=== PATIENT | male | born 1960 | race Caucasian/White ===

== ENCOUNTER 2017-01-30 20:51 | Inpatient (IN) ==
[2017-01-31] MEDS ORDERED: Ondansetron 4 MG/2 ML VIAL IVP PRN (01:02)
[2017-01-31] MEDS ORDERED: Acetaminophen 325 MG TABLET PO PRN (01:02)
[2017-01-31] MEDS ORDERED: Naloxone 0.4 MG/ML INJ IVP PRN (01:02)
--- NOTE | 2017-01-31 01:13 | Internal Med History&Physical ---
Date of Encounter: 01/30/17 Time of Encounter: 12:45 Assessment and Plan (1) GI bleed Current visit: No Status: Acute Concern for upper first lower GI bleed, no increase in BUN seen in patient describes dark red blood in his stool. This concerning for potential proximal lower GI bleed versus upper GI bleed. Hemoglobin 5.6 after 1 unit of PRBCs remains at 5.6. Start on protonic strip Nothing by mouth We will consult gastroenterology for concern of possible need of upper and lower endoscopies We will order transfusion of additional unit of PRBCs We will continue to trend hemoglobin and hematocrit Qualifiers: GI bleed type/associated pathology: unspecified gastrointestinal hemorrhage type Qualified Code(s): K92.2 - Gastrointestinal hemorrhage, unspecified (2) Anemia Current visit: Yes Status: Acute Secondary to suspected GI bleed Plan as above Qualifiers: Anemia type: other cause Other causes of anemia: other cause, not classified Qualified Code(s): D64.89 - Other specified anemias (3) DVT prophylaxis Current visit: Yes Status: Acute Pneumatic compression devices due to concern for GI bleed and anemia Internal Medicine - H&P: HPI Chief complaint: weakness, blood per rectum Admitted From: Emergency Dept Plans for Post Hospital Care: Home History of present illness: Mr. Lester is a 56 year old male with no significant past medical history who presents to [facility] continued exertional fatigue and weakness that been going on for 3-4 days. He said this began on 01/26/17 with dark-colored stool with blood on the toilet paper. He states that the blood in the stool on and lasted through 01/27/17, but he has continued to have weakness. He also reports having a feeling of lightheadedness as well as alterations in his vision whenever he stands up from a seated position. He denies nausea/vomiting, denies diarrhea/constipation, denies abdominal pain, denies shortness of breath , denies chest pain. Reports headache. Past Med Surg Social Fam HX - Past Medical History Medical history: no medical history Psychiatric history: no psych history - Past Surgical History Surgical History: appendectomy - Social History Smoking Status: Current every day smoker Packs per day: 1 Smokeless Tobacco Status: No Alcohol use: occasionally Drug use: none - Family History Son History Unknown: Yes Internal Medicine - H&P: Meds No Known Home Drugs 01/30/17 [History] Allergies ibuprofen Allergy (Verified 01/30/17 17:19) Swelling of Lip/Tongue/Throat - Constitutional Constitutional: fatigue, weakness, no chills, no fever(s), no lethargy - EENT Eyes: as per HPI, blurry vision, change in vision, floaters - Cardiovascular Cardiovascular ROS IM: as per HPI, dyspnea on exertion, lightheadedness, no chest pain, no diaphoresis, no dyspnea, no edema, no orthopnea, no syncope - Respiratory Respiratory: dyspnea on exertion, no cough, no dyspnea, no hemoptysis, no pain on inspiration, no chest congestion - Gastrointestinal Gastrointestinal: hematochezia, melena, no abdominal pain, no constipation, no diarrhea, no hematemesis, no vomiting - Genitourinary Genitourinary ROS male: no hematuria - Musculoskeletal Musculoskeletal ROS IM: no back pain, no muscle cramps, no muscle weakness - Neurological Neurological ROS: as per HPI, dizziness, headache(s), weakness, no frequent falls, no numbness - Constitutional Vitals: Temp Pulse Resp BP Pulse Ox 99.0 F 84 16 107/63 95 01/30/17 22:49 01/30/17 22:49 01/30/17 22:49 01/30/17 22:49 01/30/17 22:49 Exam: General: Cooperative, pleasant, no acute distress, alert and oriented 3, answers questions appropriately Head: Normocephalic, atraumatic Eye: Conjunctiva pink, sclera anicteric, EOMI, PERRL Neck: Supple, trachea midline, old pharynx moist, no erythema or exudates noted in oropharynx Respiratory: No accessory muscle usage, clear to auscultation bilaterally, no wheezes/rhonchi/rales appreciated Cardiovascular: Regular rate and rhythm, S1 and S2 present, no murmurs/rubs/ gallops/clicks appreciated GI/abdominal: Nondistended, nontender, soft, normal bowel sounds, no peritoneal signs Extremities: No calf tenderness, noncyanotic, no pedal edema appreciated, warm, lower extremity pulses palpable and symmetrical Neurological: Alert and oriented 3, no facial droop, no focal deficits Skin: Dry, intact, normal color Internal Med - H&P Results - Labs CBC & Chem 7: 01/31/17 03:18 01/31/17 03:18
[2017-01-31] MEDS: Pantoprazole 40 MG in 0.9 % Sodium Chloride Mini Bag 100 ML IVC SCH ×5 (01:39→23:34)
--- NOTE | 2017-01-31 02:57 | Event Note ---
Date of Encounter: 01/31/17 Time of Encounter: 02:56 Patient seen and examined the internist medical doctor md. Suspect lower G.I. bleeding. He will need colonoscopy +/- endoscopy. He is on Protonix drip. 2 units of blood transfusion. Gastroenterology consultation. He is not on any antiplatelet, anticoagulant medications or nonsteroidal anti-inflammatory drugs
[2017-01-31 03:33] LABS: Red Cell Distribution Width 14.1 % (11.5-14.5)
[2017-01-31 03:35] LABS: Basophils % 0.3 %; Eosinophils # 0.1 K/mcL (0.0-0.6); Eosinophils % 1.4 %; Immature Granulocytes % 2.2 % (0-4); Lymphocytes # 2.1 K/mcL (0.6-4.6); Lymphocytes % 26.8 %; Mean Corpuscular HGB Conc 32.9 g/dL (31.6-35.5); Mean Corpuscular Hemoglobin 28.9 pg (28.0-33.3); Mean Corpuscular Volume 87.6 fL (83.0-100.0); Mean Platelet Volume 9.3 fL (9.4-12.4); Monocytes # 0.6 K/mcL (0.0-1.3); Monocytes % 7.9 %; Nucleated Red Blood Cells 0.8 /100 WBC (0); Platelet Count 192 K/mcL (140-400); Red Blood Count 1.94 M/mcL (4.19-5.50); Segmented Neutrophils % 61.4 %
[2017-01-31 03:39] LABS: Prothrombin Time 11.3 Seconds (9.4-12.1)
[2017-01-31 03:42] LABS: Activated Partial Thrombo Time 29.5 Seconds (26.0-36.0)
[2017-01-31 03:48] LABS: Hemoglobin 5.6 g/dL (12.9-16.9); Neutrophils # 4.9 K/mcL (1.6-8.9)
[2017-01-31 03:49] LABS: BUN/Creatinine Ratio 21 (6-26); Blood Urea Nitrogen 18 mg/dL (8-26); Carbon Dioxide 26 mEq/L (19-29); Chloride 108 mEq/L (98-109); Potassium 3.7 mEq/L (3.5-4.5); Sodium 139 mEq/L (136-145); eGFR For African Americans > 60 (> 60)
[2017-01-31 03:50] LABS: Alanine Aminotransferase 23 Units/L (0-55); Albumin 2.7 g/dL (3.5-5.0); Albumin/Globulin Ratio 1.2 (1.1-2.2); Alkaline Phosphatase 59 Units/L (38-126); Aspartate Amino Transferase 16 Units/L (5-34); Bilirubin,Total 0.3 mg/dL (0.2-1.2); Calcium 7.5 mg/dL (8.6-10.8); Globulin 2.2 g/dL (2.4-3.5); Glucose 96 mg/dL (70-99); Osmolality,Calculated 290 (280-300); Total Protein 4.9 g/dL (6.0-8.3); eGFR For Non-African Americans > 60 (> 60)
[2017-01-31] MEDS ORDERED: 0.9 % Sodium Chloride 500 ML ONE ×2 (04:35→14:52)
--- NOTE | 2017-01-31 08:15 | Gastroenterology Consult Note ---
<Elena Childress - Last Filed: 01/31/17 11:06> Date of Encounter: 01/31/17 Time of Encounter: 10:25 - Assessment and plan (1) Anemia Current Visit: Yes Status: Acute Assessment and plan: Accompanied by dark stools, blood on toilet tissue. Presented at 5.6, order in for 1 unit PRBC. EGD/Colon tomorrow to r/o esophagitis, gastritis, duodenitis, PUD, MW tear, polyps, tumors, AVMs, anorectal pathology Qualifiers: Anemia type: other cause Other causes of anemia: other cause, not classified Qualified Code(s): D64.89 - Other specified anemias (2) GI bleed Current Visit: No Status: Acute Assessment and plan: EGD to r/o esophagitis, gastritis, duodenitis, PUD, MW tear, polyp, tumor, AVM. Continue PPI gtt. Qualifiers: GI bleed type/associated pathology: unspecified gastrointestinal hemorrhage type Qualified Code(s): K92.2 - Gastrointestinal hemorrhage, unspecified - Time Spent With Patient Total time spent is greater than 50% in coordination of care (as documented) at patient's floor/unit and/or counseling patient: less than 15 minutes GI History of Present Illness - Data of Consult Patient: new to practice Consult date: 01/31/17 Requesting Physician: Michael Chatman - Consult Narrative Reason for consult: GIB History of present illness: Mr. Lester is a 56 year old male with no significant past medical history who presents to [facility] with complaint of exertional fatigue and weakness that been going on for 3-4 days. He said this began on 01/26/17 with dark-colored stool and blood noted on the toilet paper. He states that the blood in the stool lasted through 01/27/17, but he has continued to have weakness. He also reports having a feeling of lightheadedness as well as alterations in his vision whenever he stands up from a seated position. He denies nausea/vomiting , denies diarrhea/constipation, denies abdominal pain, denies shortness of breath, denies chest pain. Reports headache. No records in [facility] system regarding prior endoscopy. Patient relates no bleeding since Monday, denies abdominal pain or cramping, no family hx of colon cancer. Admits SOB with exertion and extreme fatigue prior to admission. Relates an episode that occurred when he was young, around [age] years of age, at which time an attached piece of tissue or nodule had to be excised from his rectum after expelling same with straining. He was told at that time it was a 'polyp'. Colonoscopy: None EGD: None Past Med Surg Social Fam HX - Past Medical History Medical history: no medical history Psychiatric history: no psych history - Past Surgical History Surgical History: appendectomy - Social History Smoking Status: Current every day smoker Packs per day: 1 Smokeless Tobacco Status: No Alcohol use: occasionally Drug use: none - Family History Son History Unknown: Yes - Gastrointestinal NSAID use: None noted Anticoagulation Use: None noted Number of BM Per Day: Variable - daily to every 2 days Gastrointestinal: Present: change in bowel habits, melena - Constitutional Constitutional: fatigue - EENT Eyes: other visual disturbances Ears: Present: as per HPI Nose, mouth and throat: Present: as per HPI - Cardiovascular Cardiovascular ROS: Present: as per HPI - Respiratory Respiratory IM: Present: dyspnea - Neurological ROS Neurological GI: Present: as per HPI - Hematologic/Lymphatic Hematologic/Lymphatic pediatric: Present: as per HPI - Musculoskeletal Musculoskeletal ROS GI: Present: as per HPI - Integumentary Integumentary GI: Present: as per HPI - Psychiatric ROS Psychiatric GI: Present: as per HPI - Endocrine Endocrine IM: Present: fatigue - Constitutional Vitals: Temp Pulse Resp BP Pulse Ox 98.2 F 74 16 100/61 94 L 01/31/17 05:11 01/31/17 05:11 01/31/17 05:11 01/31/17 05:11 01/31/17 05:11 General appearance: Present: cooperative, A&O X 3, no acute distress, answers questions appropriately - Head Head exam: Present: atraumatic, normocephalic - Eye Eye exam: Present: normal appearance, sclera anicteric - ENT ENT exam: Present: mucous membranes moist - Neck Neck exam general surgery: Present: normal inspection, trachea midline - Respiratory Respiratory exam: Present: CTAB - Cardiovascular Cardiovascular exam: Present: RRR, +S1, +S2 - GI/Abdominal GI/Abdominal exam: Present: normal bowel sounds, soft, no peritoneal signs - Rectal Rectal exam: Present: deferred - Extremities Exam Extremities exam: Present: warm - Neurological Exam Neurological exam: Present: no focal deficits - Psychiatric Psychiatric exam: Present: normal affect, normal mood - Skin Skin exam: Present: pallor Results - Labs CBC & Chem 7: 01/31/17 09:39 01/31/17 03:18 Labs: Last Result Calcium 7.5 mg/dL (8.6-10.8) L 01/31/17 03:18 Entire Visit Hgb 5.6 g/dL (12.9-16.9) L* 01/31/17 03:18 Hct 17.0 % (37.5-50.1) L 01/31/17 03:18 PT 11.3 Seconds (9.4-12.1) 01/31/17 03:18 Total Bilirubin 0.3 mg/dL (0.2-1.2) 01/31/17 03:18 AST 16 Units/L (5-34) 01/31/17 03:18 ALT 23 Units/L (0-55) 01/31/17 03:18 - ABG ABG results: PT/INR, D-dimer PT 11.3 Seconds (9.4-12.1) 01/31/17 03:18 Consult Discharge Plan - Plan Referrals: Nargis Corrales HEAD RESIDENT [Advanced Practice Nurse] - 02/10/17 9:00 am (Please bring to your appointment your insurance card, photo ID, any medications you are on. You will get a new patient packet in the mail, please bring it filled out. If you need to cancel please give the office a 24 hour notice. Thank you) <Mike Monsivais - Last Filed: 01/31/17 18:04> Time of Encounter: 13:00 - Time Spent With Patient Total time spent is greater than 50% in coordination of care (as documented) at patient's floor/unit and/or counseling patient: GI History of Present Illness - Data of Consult Requesting Physician: Michael Chatamn - Consult Narrative History of present illness: Mr. Lester is a 56 year old male - Constitutional Vitals: Temp Pulse Resp BP Pulse Ox 98.0 F 79 16 107/69 97 01/31/17 15:38 01/31/17 15:38 01/31/17 15:38 01/31/17 15:38 01/31/17 15:38 Results - Labs CBC & Chem 7: 01/31/17 09:39 01/31/17 03:18 Labs: Last Result Calcium 7.5 mg/dL (8.6-10.8) L 01/31/17 03:18 Entire Visit Hgb 6.5 g/dL (12.9-16.9) L 01/31/17 09:39 Hct 19.9 % (37.5-50.1) L 01/31/17 09:39 PT 11.3 Seconds (9.4-12.1) 01/31/17 03:18 Total Bilirubin 0.3 mg/dL (0.2-1.2) 01/31/17 03:18 AST 16 Units/L (5-34) 01/31/17 03:18 ALT 23 Units/L (0-55) 01/31/17 03:18 - ABG ABG results: PT/INR, D-dimer PT 11.3 Seconds (9.4-12.1) 01/31/17 03:18 - Attending Attestation I examined this patient and my medical decision-making was reviewed with the FAGOTING MACHINE OPERATOR/PA/Advanced Practice Nurse/Resident Physician. I agree with the documented findings, disposition and treatment plan as described except to the extent set forth below.
[2017-01-31] MEDS: Nicotine 14 MG PATCH.TD24 TD SCH (09:27)
[2017-01-31 10:01] LABS: Hematocrit 19.9 % (37.5-50.1); Hemoglobin 6.5 g/dL (12.9-16.9)
--- NOTE | 2017-01-31 12:09 | Internal Med Progress Note ---
Date of Encounter: 01/31/17 Time of Encounter: 12:06 - Assessment and plan (1) Anemia Current Visit: Yes Status: Acute Assessment and plan: acute symptomatic blood loss anemia likely secondary to GI bleed possible upper protonix drip GI coonsult , EGD and colonoscopy in AM Clear liq and NPO after mindnight, bowel prep IVF Transfuse 1 unit of blood ( had 2 already) Qualifiers: Anemia type: other cause Other causes of anemia: other cause, not classified Qualified Code(s): D64.89 - Other specified anemias (2) Tobacco abuse Current Visit: Yes Status: Acute Assessment and plan: nicotine patch, smoking cessation counseling given for 5 min (3) GI bleed Current Visit: No Status: Acute Assessment and plan: high risk of recurrent GI bleed Qualifiers: GI bleed type/associated pathology: unspecified gastrointestinal hemorrhage type Qualified Code(s): K92.2 - Gastrointestinal hemorrhage, unspecified (4) DVT prophylaxis Current Visit: Yes Status: Acute Assessment and plan: SCD - Time Spent With Patient Greater than 35 minutes - Subjective Interval history: denies having any bowel movement since monday, no bleeding, no nausea or vomiting, no abdominal pain , no CP or SOB, no dysuria - Constitutional Vitals: Temp Pulse Resp BP Pulse Ox 98.5 F 78 18 101/61 95 01/31/17 08:35 01/31/17 08:35 01/31/17 08:35 01/31/17 08:35 01/31/17 08:35 - Head Head exam: Present: atraumatic, normocephalic - Eye Eye exam: Present: PERRL, conjuntiva pink, sclera anicteric Pupils: Present: PERRL - Neck Neck exam general surgery: Present: supple, trachea midline. Absent: lymphadenopathy - Respiratory Respiratory exam: Present: CTAB. Absent: accessory muscle use, rales, rhonchi, wheezes - Cardiovascular Cardiovascular exam: Present: RRR, +S1, +S2. Absent: diastolic murmur, gallop, rubs, systolic murmur - GI/Abdominal GI/Abdominal exam: Present: normal bowel sounds, soft, no peritoneal signs. Absent: distended, tenderness - Extremities Exam Extremities exam: Present: warm, radial pulses palpable and symetrical. Absent : calf tenderness, cyanotic, pedal edema - Neurological Exam Neurological exam: Present: CN II-XII intact, oriented X3, no focal deficits. Absent: pronater drift, facial droop, speech deficit - Skin Skin exam: Present: dry, intact Internal Medicine: Result - Labs CBC & Chem 7: 01/31/17 09:39 01/31/17 03:18 Labs: Short CBC 01/31/17 01/31/17 Range/Units 03:18 09:39 WBC 7.9 (4.3-11.1) K/mcL Hgb 5.6 L* 6.5 L (12.9-16.9) g/dL Hct 17.0 L 19.9 L (37.5-50.1) % Plt Count 192 (140-400) K/mcL Neutrophils # 4.9 (1.6-8.9) K/mcL BMP 01/31/17 03:18 Sodium 139 Potassium 3.7 Chloride 108 Carbon Dioxide 26 BUN 18 Creatinine 0.86 Glucose 96 Calcium 7.5 L Liver Function 01/31/17 Range/Units 03:18 Total Bilirubin 0.3 (0.2-1.2) mg/dL AST 16 (5-34) Units/L ALT 23 (0-55) Units/L Alkaline Phosphatase 59 (38-126) Units/L Albumin 2.7 L (3.5-5.0) g/dL - ABG Interpretation ABG results: PT/INR, D-dimer PT 11.3 Seconds (9.4-12.1) 01/31/17 03:18 Consult Discharge Plan - Plan Referrals: Nargis Corrales CNP [Advanced Practice Nurse] - 02/10/17 9:00 am (Please bring to your appointment your insurance card, photo ID, any medications you are on. You will get a new patient packet in the mail, please bring it filled out. If you need to cancel please give the office a 24 hour notice. Thank you)
[2017-01-31] MEDS ORDERED: SODIUM CHLORIDE/NAHCO3/KCL/PEG 4,000 ML SOLN.RECON PO ONE (19:00)
[2017-01-31 22:45] LABS: Hematocrit 25.2 % (37.5-50.1)
[2017-01-31 22:47] LABS: Hemoglobin 8.2 g/dL (12.9-16.9)
[2017-02-01 02:01] LABS: Hematocrit 24.8 % (37.5-50.1); Mean Corpuscular HGB Conc 32.3 g/dL (31.6-35.5); Mean Corpuscular Hemoglobin 28.7 pg (28.0-33.3); Mean Corpuscular Volume 88.9 fL (83.0-100.0); Mean Platelet Volume 9.3 fL (9.4-12.4); Platelet Count 222 K/mcL (140-400); Red Blood Count 2.79 M/mcL (4.19-5.50); Red Cell Distribution Width 15.1 % (11.5-14.5)
[2017-02-01 02:18] LABS: BUN/Creatinine Ratio 16 (6-26); Blood Urea Nitrogen 14 mg/dL (8-26); Calcium 8.1 mg/dL (8.6-10.8); Carbon Dioxide 26 mEq/L (19-29); Chloride 105 mEq/L (98-109); Glucose 86 mg/dL (70-99); Osmolality,Calculated 288 (280-300); Potassium 3.5 mEq/L (3.5-4.5); Sodium 139 mEq/L (136-145); eGFR For African Americans > 60 (> 60); eGFR For Non-African Americans > 60 (> 60)
[2017-02-01] MEDS: Pantoprazole 40 MG in 0.9 % Sodium Chloride Mini Bag 100 ML IVC SCH ×2 (04:38→10:43)
[2017-02-01] MEDS: Nicotine 14 MG PATCH.TD24 TD SCH (10:44)
--- NOTE | 2017-02-01 14:15 | Anesthesia Evaluation PreOp ---
Date of Encounter: 02/01/17 Time of Encounter: 14:13 - Past History Planned Operation: EGD/Colonoscopy Cardiac History: Other (Anemia) Pulmonary History: Denies Any Significant HX, Smoker, Pack/yr (1 ppd x 30 years , quit 1 week ago) SALES OPERATIONS COORDINATOR History: Denies Any Significant HX Other Medical History: Other (GI bleed) Anesthesia History: No Prior Anesthetic Complications, Past Anesthesia (APPY) Alcohol Use: occasionally Drug use: none Medications and Allergies No Known Home Drugs 01/30/17 [History] Allergies ibuprofen Allergy (Verified 01/31/17 10:32) Swelling of Lip/Tongue/Throat - Meds/Allergy Pre-op Review Medications Reviewed: Yes Allergies Reviewed: Yes Beta Blockers on Current Med List: No Anesthesia Results - Labs 02/01/17 01:50 02/01/17 01:50 Anesthesia Exam O2 Sat Weight 84.51 kg O2 Sat by Pulse Oximetry 97 O2 Sat by Pulse Oximetry 97 O2 Sat by Pulse Oximetry 94 O2 Sat by Pulse Oximetry 96 O2 Sat by Pulse Oximetry 98 O2 Sat by Pulse Oximetry 97 Vital Signs Temp Pulse Resp BP Pulse Ox 99.0 F 84 16 107/63 95 01/30/17 22:49 01/30/17 22:49 01/30/17 22:49 01/30/17 22:49 01/30/17 22:49 Vital Signs/O2 Sat, Most Current Temp Pulse Resp BP Pulse Ox 97.8 F 62 16 109/69 97 02/01/17 10:53 02/01/17 10:53 02/01/17 10:53 02/01/17 10:53 02/01/17 10:53 Height: 5'10'' Weight: 186# NPO (# of Hours): > 8 hrs Pain Scale: 0 Pain Scale Used: Numeric (1 - 10) - HEENT Pupil (Motor): Pupils equal, EOMI Mallampati: II Teeth: Poor dentition Oral Opening: Greater than 3 - SALES OPERATIONS COORDINATOR LOC: Oriented SALES OPERATIONS COORDINATOR Motor: Normal RUE, Normal LUE, Normal RLE, Normal LLE, Normal Face SALES OPERATIONS COORDINATOR Sensory: Normal: RUE, LUE, RLE, LLE, Face - Cardiac Rhythm: Regular Murmur: None JVD: No Carotid Bruit: No - Pulmonary Breath Sounds: bilateral Clear Respiratory Effort: Symmetrical Anesthesia Assess/Plan ASA Score: 2 Modified [place] Scale for Level of Consciousness: Cooperative, oriented, and tranquil Anesthetic Plan: MAC Autologous Blood: Yes Monitoring Plan: Standard Monitors Recovery Plan: Other
[2017-02-01 14:25] VITALS: BP 147/85
[2017-02-01] MEDS ORDERED: Tetracaine/Benzocaine/Butamben 200MG/SPRAY (100SPY/BOT) MM ONE (14:39)
--- NOTE | 2017-02-01 15:49 | Discharge Summary ---
Date of Encounter: 02/01/17 Time of Encounter: 15:45 - Discharge Diagnosis (1) Anemia Priority: Primary Status: Acute Comments: acute symptomatic blood loss anemia likely secondary to GI bleed from erosive gastropathy and colonic polyps Qualifiers: Anemia type: other cause Other causes of anemia: other cause, not classified Qualified Code(s): D64.89 - Other specified anemias (2) Tobacco abuse Priority: Secondary Status: Acute (3) GI bleed Priority: Primary Status: Acute Qualifiers: GI bleed type/associated pathology: unspecified gastrointestinal hemorrhage type Qualified Code(s): K92.2 - Gastrointestinal hemorrhage, unspecified (4) DVT prophylaxis Priority: Secondary Status: Acute (5) Colon polyp Priority: Secondary Status: Acute Qualifiers: Colon location: unspecified part of colon Inflammatory colon polyp complication status: without complication Qualified Code(s): K51.40 - Inflammatory polyps of colon without complications - Discharge Medications Prescriptions: Omeprazole [PriLOSEC] 40 mg PO BID 30 Days Home Medications: Omeprazole [PriLOSEC] 40 mg PO BID 30 Days 02/01/17 [Rx] Allergies/Adverse Reactions: Allergies ibuprofen Allergy (Verified 01/31/17 10:32) Swelling of Lip/Tongue/Throat Date of admission: 01/31/17 06:16 Primary care physician: PCP NO Consults: 01/30/17 23:34 Consult to Director Market Intelligence [CONS] Routine Reason for SW Consult: Pt. is homeless and lives in his car. 01/31/17 01:02 Consult to Gastroenterology [CONS] Routine Consulting Provider: Gastroenterology Jenny Reason for Consult: Concern for Upper GI Bleed Call Completed: No - Patient Status Disposition: Home, Self-Care Condition: Good Overall status at discharge: patient is progressing back to baseline - Discharge Instructions Follow Up With: Nargis Corrales CNP [Advanced Practice Nurse] - 02/10/17 9:00 am (Please bring to your appointment your insurance card, photo ID, any medications you are on. You will get a new patient packet in the mail, please bring it filled out. If you need to cancel please give the office a 24 hour notice. Thank you) Additional Instructions: Follow with primary care physician within 7 days. COntinue omeprazole twice a day for 7 days then daily. Quit smoking , follow up with GI within 2-3 weeks to review pathology reports. - Diet and Activity Activity: increase activity as tolerated Diet: low fat, low cholesterol, regular diet Hospital course: Mr. Lester is a 56 year old male with no significant past medical history other than tobacco, who presented to [facility] complaining of exertional fatigue and weakness that had been going on for 3-4 days. He said this began on 01/26/17 with dark-colored stool with blood on the toilet paper. He stated that the blood in the stool on and lasted through 01/27/17, but he has continued to have weakness. He also reports having a feeling of lightheadedness as well as alterations in his vision whenever he stands up from a seated position. Hb was 5.6, required 3 units of RBCs. Underwent EGD showing erosive gastropaty and colonoscopy removing 3 nonbleeding polyps. Hb is 8 today , he is stable and can be discharged today. Biopsies were taken and will be reviewed as outpatient as they are pending Time spent discussing smoking cessation with patient: 3 to 10 minutes - Time Spent with Patient Total time spent providing and/or coordinating discharge services: Less than 30 minutes - Constitutional Vitals: Temp Pulse Resp BP Pulse Ox 98.0 F 80 18 147/85 97 02/01/17 14:22 02/01/17 14:22 02/01/17 14:22 02/01/17 14:22 02/01/17 14:22 - Head Head exam: Present: atraumatic, normocephalic - Eye Eye exam: Present: PERRL, conjuntiva pink, sclera anicteric Pupils: Present: PERRL - Neck Neck exam general surgery: Present: supple, trachea midline. Absent: lymphadenopathy - Respiratory Respiratory exam: Present: decreased breath sounds, CTAB. Absent: accessory muscle use, rales, rhonchi, wheezes - Cardiovascular Cardiovascular exam: Present: RRR, +S1, +S2. Absent: diastolic murmur, gallop, rubs, systolic murmur - GI/Abdominal GI/Abdominal exam: Present: normal bowel sounds, soft, no peritoneal signs. Absent: distended, tenderness - Extremities Exam Extremities exam: Present: warm, radial pulses palpable and symetrical. Absent : calf tenderness, cyanotic, pedal edema - Neurological Exam Neurological exam: Present: CN II-XII intact, oriented X3, no focal deficits. Absent: pronater drift, facial droop, speech deficit - Skin Skin exam: Present: dry, intact
--- NOTE | 2017-02-01 15:53 | Anesthesia Evaluation Post Op ---
Date of Encounter: 02/01/17 Time of Encounter: 15:30 - Vital Signs Vital Signs: Vital Signs/O2 Sat/Glucose, Most Current Temp Pulse Resp BP Pulse Ox 02/01/17 14:22 98.0 F 80 18 147/85 97 - Lungs Lungs: Clear Ascult./Percussion - Airway Airway: Non-obstructed - Cardiovascular Regular Rate - Mental Status Mental Status: Alert & Oriented, Answers Appropriately - Pain Pain Scale: 0 - Nausea Vomiting Nausea Vomiting: Not Present - Hydration Hydration: NPO - Discharge PostOp Status: Transfer Patient to floor
[2017-02-01] MEDS ORDERED: *HR* Propofol 200 MG/20 ML VIAL IVP ONE (18:02)
== END 2017-02-01 18:03 | disposition home or self-care (01) | DRG 254 ==
LOC: 3ANU → SUATTDRO 01-31 06:16
PROVIDERS: ADMIT Hospitalist; ATTEND Internal Medicine
PROC: ENDOEBX (2017-02-01 14:00)